=== PATIENT | female | born 2000 | race Caucasian/White ===

== ENCOUNTER 2021-01-26 22:00 | Emergency (ER) | payer MEDICAID ==
--- NOTE | 2021-01-26 22:22 | EDM.PDOC ---
ED HPI GENERAL MEDICAL PROBLEM - General Chief Complaint: ENT Problem Stated Complaint: SORE THROAT, CHILLS, 36 WEEKS PREGANT Time Seen by Provider: 01/26/21 22:21 Source of Information: Reports: Patient History Limitations: Reports: No Limitations - History of Present Illness INITIAL COMMENTS - FREE TEXT/NARRATIVE: Patient 20-year-old female who states she 36 weeks . Patient comes in today complaining of sore throat with her boyfriend was also being seen here. Patient states that she also traveled from [place] and wants to be checked for Covid as well. Patient has no cough shortness of breath fever chills abdominal pain vaginal bleeding or discharge. Throat Pain Score (Numeric/FACES): 3 - Related Data Allergies Allergy/AdvReac Type Severity Reaction Status Date / Time bee venom protein (honey bee) Allergy Anaphylactic Verified 12/15/20 23:55 Shock ibuprofen Allergy Hives Verified 12/15/20 23:55 nut - unspecified Allergy Wheezing Verified 12/15/20 23:55 hayfever Allergy Wheezing Uncoded 12/09/20 19:35 mushroom Allergy Anaphylactic Uncoded 12/09/20 19:35 Shock Home Meds: Home Meds Ondansetron [Zofran ODT] 4 mg PO Q6H PRN 12/09/20 [History] Pnv No.103/Folic/Om3s/Fish Oil [ Gummies] 1 each PO DAILY 12/09/20 [Hist ory] ED ROS ENT - Review of Systems Review Of Systems: See Below Constitutional: Reports: No Symptoms HEENT: Reports: Throat Pain Respiratory: Reports: No Symptoms Endocrine: Reports: No Symptoms GI/Abdominal: Reports: No Symptoms : Reports: No Symptoms Musculoskeletal: Reports: No Symptoms Skin: Reports: No Symptoms Neurological: Reports: No Symptoms Psychiatric: Reports: No Symptoms Hematologic/Lymphatic: Reports: No Symptoms Immunologic: Reports: No Symptoms ED EXAM, ENT - Physical Exam Exam: See Below Exam Limited By: No Limitations General Appearance: Alert, WD/WN, No Apparent Distress Mouth/Throat: Normal Inspection, Normal Gums Head: Atraumatic Respiratory/Chest: No Respiratory Distress, Lungs Clear, Normal Breath Sounds Cardiovascular: Normal Peripheral Pulses, Regular Rate, Rhythm GI/Abdominal: Normal Bowel Sounds, Soft, Non-Tender Extremities: Normal Inspection Neurological: Alert, Oriented, CN II-XII Intact, Normal Cognition, Normal Gait Course - Vital Signs Last Recorded V/S: Last Vital Signs Temp 96.8 F L 01/26/21 22:10 Pulse 84 01/26/21 22:10 Resp 14 01/26/21 22:10 BP 137/80 01/26/21 22:10 Pulse Ox 98 01/26/21 22:10 - Orders/Labs/Meds Labs: Laboratory Tests 01/26/21 01/26/21 01/26/21 Range/Units 22:25 22:25 23:00 Urine Color YELLOW Urine Appearance CLEAR Urine pH 7.0 (5.0-8.0) Ur Specific Labelle 1.010 (1.001-1.035) Urine Protein NEGATIVE (NEGATIVE) mg/dL Urine Glucose (UA) NEGATIVE (NEGATIVE) mg/dL Urine Ketones NEGATIVE (NEGATIVE) mg/dL Urine Occult Blood NEGATIVE (NEGATIVE) Urine Nitrite NEGATIVE (NEGATIVE) Urine Bilirubin NEGATIVE (NEGATIVE) Urine Urobilinogen 0.2 (<2.0) EU/dL Ur Leukocyte Esterase NEGATIVE (NEGATIVE) SARS-CoV-2 RNA (ANIRUDH) NEGATIVE (NEGATIVE) Group A Strep (PCR) NOT DETECTED (NOT DETECT) - Re-Assessments/Exams Free Text/Narrative Re-Assessment/Exam: 01/26/21 23:28 Patient strep and Covid are negative patient will be discharged given [facility] follow-up. Departure - Departure Time of Disposition: 23:28 Disposition: Home, Self-Care 01 Condition: Good Clinical Impression: Sore throat - Discharge Information *PRESCRIPTION DRUG MONITORING PROGRAM REVIEWED*: Not Applicable *COPY OF PRESCRIPTION DRUG MONITORING REPORT IN PATIENT LESA: Not Applicable Instructions: Sore Throat, [id number] Referrals: PCP,None [Primary Care Provider] - Forms: ED Department Discharge Additional Instructions: The following information is given to patients seen in the emergency department who are being discharged to home. This information is to outline your options for follow-up care. We provide all patients seen in our emergency department with a follow-up referral. The need for follow-up, as well as the timing and circumstances, are variable depending upon the specifics of your emergency department visit. If you don't have a primary care physician on staff, we will provide you with a referral. We always advise you to contact your personal physician following an emergency department visit to inform them of the circumstance of the visit and for follow-up with them and/or the need for any referrals to a consulting specialist. The emergency department will also refer you to a specialist when appropriate. This referral assures that you have the opportunity for follow-up care with a specialist. All of these measure are taken in an effort to provide you with optimal care, which includes your follow-up. Under all circumstances we always encourage you to contact your private physician who remains a resource for coordinating your care. When calling for follow-up care, please make the office aware that this follow-up is from your recent emergency room visit. If for any reason you are refused follow-up, please contact the [facility] Emergency Department at and asked to speak to the emergency department charge nurse. Please follow up with your primary care physician. If you do not have a primary care physician, see below: [facility] [address] [place] [id number] [facility] [address] [place] [address] You are seen today for sore throat and Covid concerns. Your strep is negative and your Covid is negative. Above is numbers for [facility] clinic that you can follow-up with. We also put you in a list today should call you hopefully for appointment if you have any concerns please return to the ED. Sepsis Event Note (ED) - Evaluation Sepsis Screening Result: No Definite Risk - Focused Exam Vital Signs: Vital Signs Temp Pulse Resp BP Pulse Ox 01/26/21 22:10 96.8 F L 84 14 137/80 98 - Assessment/Plan Plan: Patient 20-year-old female started 36wk presents today for throat pain. Will obtain strep Covid swab and will likely discharge home.
== END 2021-01-26 23:40 | disposition home or self-care (01) ==
LOC: MW.ED 22:00
DX: O99.513 Diseases of the respiratory system complicating pregnancy, third trimester (principal); J02.9 Acute pharyngitis, unspecified; Z20.822 Contact with and (suspected) exposure to COVID-19; Z91.048 Other nonmedicinal substance allergy status; Z91.018 Allergy to other foods; Z91.030 Bee allergy status; Z88.8 Allergy status to other drugs, medicaments and biological substances; Z3A.36 36 weeks gestation of pregnancy
CPT/HCPCS: 81003; 87651-QW; 99283; U0002

== ENCOUNTER 2021-06-16 17:22 | Emergency (ER) | payer MEDICAID | END 2021-06-16 19:03 | disposition left against medical advice (07) | LOC: MW.ED 17:22 | DX: Z53.21 Procedure and treatment not carried out due to patient leaving prior to being seen by health care provider (principal) ==

== ENCOUNTER 2021-10-06 19:44 | Emergency (ER) | payer MEDICAID ==
[2021-10-06] MEDS ORDERED: Ondansetron 4 MG Tab.DIS PO ONE (19:57)
== END 2021-10-06 20:50 ==
LOC: MW.ED 19:44
DX: R07.89 Other chest pain (principal); F41.0 Panic disorder [episodic paroxysmal anxiety]; Z91.030 Bee allergy status; Z88.0 Allergy status to penicillin; Z91.018 Allergy to other foods; Z88.8 Allergy status to other drugs, medicaments and biological substances
CPT/HCPCS: 71045; 93005; 99285; A9270

== ENCOUNTER 2022-02-20 17:03 | Emergency (ER) | payer MEDICAID ==
[2022-02-20] MEDS ORDERED: Diphtheria,Pertussis(Acell),Tetanus Vaccine 0.5 ML Syringe IM ONE (17:30)
== END 2022-02-20 18:10 | disposition home or self-care (01) ==
LOC: MW.ED 17:03
DX: S80.212A Abrasion, left knee, initial encounter (principal); F41.9 Anxiety disorder, unspecified; F32.A Depression, unspecified; X58.XXXA Exposure to other specified factors, initial encounter; Z23 Encounter for immunization
CPT/HCPCS: 90471; 90715; 99283-25

== ENCOUNTER 2022-02-24 21:20 | Emergency (ER) | payer MEDICAID ==
[2022-02-24] MEDS ORDERED: Lactated Ringers 1,000 ML IV ONE (21:56)
[2022-02-24] MEDS ORDERED: Ondansetron 4 MG/2 ML SDV IVPUSH ONE (21:56)
[2022-02-24] MEDS ORDERED: Sodium Chloride 0.9% 10 ML Syringe FLUSH PRN (21:56)
[2022-02-24] MEDS ORDERED: Sodium Chloride 0.9% 2.5 ML Syringe FLUSH PRN (21:56)
[2022-02-24 22:41] LABS: CARBON DIOXIDE,CO2 26.7 mmol/L (21.0-32.0)
[2022-02-24 22:53] LABS: CORONAVIRUS COVID-19 NAA NEGATIVE (NEGATIVE); INFLUENZA A NAA NEGATIVE (NEGATIVE); INFLUENZA B NAA NEGATIVE (NEGATIVE)
== END 2022-02-24 23:23 | disposition home or self-care (01) ==
LOC: MW.ED 21:20
DX: B34.9 Viral infection, unspecified (principal); Z91.030 Bee allergy status; Z88.0 Allergy status to penicillin; Z91.018 Allergy to other foods; Z20.822 Contact with and (suspected) exposure to COVID-19
CPT/HCPCS: 0240U; 36415; 71045; 80053; 85025; 96361; 96374; 99284; J2405; J3490; J7120

== ENCOUNTER 2022-03-08 19:31 | Emergency (ER) | payer MEDICAID ==
[2022-03-08] MEDS ORDERED: Ondansetron 4 MG Tab.DIS PO ONE (20:40)
[2022-03-08 21:06] LABS: CARBON DIOXIDE,CO2 28.7 mmol/L (21.0-32.0); POTASSIUM,K 4.2 mmol/L (3.5-5.1)
== END 2022-03-08 21:30 | disposition home or self-care (01) ==
LOC: MW.ED 19:31
DX: R11.0 Nausea (principal); Z91.030 Bee allergy status; Z91.013 Allergy to seafood; Z88.6 Allergy status to analgesic agent; Z88.0 Allergy status to penicillin; Z88.8 Allergy status to other drugs, medicaments and biological substances; Z91.018 Allergy to other foods
CPT/HCPCS: 36415; 80048; 81003; 81025; 84703; 85025; 99283; A9270

== ENCOUNTER 2022-03-30 22:57 | Emergency (ER) | payer MEDICAID ==
[2022-03-31] MEDS ORDERED: Ondansetron 4 MG/2 ML SDV IVPUSH ONE (01:10)
[2022-03-31] MEDS ORDERED: Morphine 4 MG/ML VIAL IVPUSH ONE (01:10)
[2022-03-31] MEDS ORDERED: Lactated Ringers 1,000 ML IV STA (01:11)
[2022-03-31 02:13] LABS: CARBON DIOXIDE,CO2 25.1 mmol/L (21.0-32.0); POTASSIUM,K 4.1 mmol/L (3.5-5.1)
== END 2022-03-31 02:49 | disposition home or self-care (01) ==
LOC: MW.ED 22:57
DX: R10.9 Unspecified abdominal pain (principal); Z91.030 Bee allergy status; Z91.013 Allergy to seafood; Z91.018 Allergy to other foods; Z88.0 Allergy status to penicillin; Z88.8 Allergy status to other drugs, medicaments and biological substances
CPT/HCPCS: 36415; 80053; 81001; 81025; 83605; 83690; 85025; 85610; 87040; 96361; 96374; 96375; 99284; J2270; J2405; J7120; 99283

== ENCOUNTER 2022-06-06 03:06 | Emergency (ER) | payer MEDICAID ==
[2022-06-06 04:09] LABS: CORONAVIRUS COVID-19 NAA NEGATIVE (NEGATIVE); INFLUENZA A NAA NEGATIVE (NEGATIVE); INFLUENZA B NAA NEGATIVE (NEGATIVE); RESPIRATORY SYNCYTIAL VIR NAA NEGATIVE (NEGATIVE)
== END 2022-06-06 04:21 | disposition home or self-care (01) ==
LOC: MW.ED 03:06
DX: J06.9 Acute upper respiratory infection, unspecified (principal); Z91.030 Bee allergy status; Z91.013 Allergy to seafood; Z88.6 Allergy status to analgesic agent; Z88.0 Allergy status to penicillin; Z91.018 Allergy to other foods
CPT/HCPCS: 0241U; 99284

== ENCOUNTER 2022-06-09 16:18 | Emergency (ER) | payer MEDICAID ==
[2022-06-09] MEDS ORDERED: Ondansetron 4 MG Tab.DIS PO ONE (17:06)
[2022-06-09 17:43] LABS: CORONAVIRUS COVID-19 NAA NEGATIVE (NEGATIVE); INFLUENZA A NAA NEGATIVE (NEGATIVE); INFLUENZA B NAA NEGATIVE (NEGATIVE)
== END 2022-06-09 18:44 | disposition home or self-care (01) ==
LOC: MW.ED 16:18
DX: R05.9 Cough, unspecified (principal); R09.89 Other specified symptoms and signs involving the circulatory and respiratory systems; B34.9 Viral infection, unspecified; Z20.822 Contact with and (suspected) exposure to COVID-19; Z88.0 Allergy status to penicillin; Z88.8 Allergy status to other drugs, medicaments and biological substances
CPT/HCPCS: 0240U; 71045; 99284; A9270; 93010; 99283

== ENCOUNTER 2022-06-15 03:44 | Emergency (ER) | payer MEDICAID ==
[2022-06-15] MEDS ORDERED: Albuterol/Ipratropium 3.0-0.5 MG/3 ML Neb Soln NEB ONE (04:17)
== END 2022-06-15 05:49 | disposition home or self-care (01) ==
LOC: MW.ED 03:44
DX: J02.9 Acute pharyngitis, unspecified (principal); R09.1 Pleurisy; H66.90 Otitis media, unspecified, unspecified ear; Z91.030 Bee allergy status; Z88.0 Allergy status to penicillin; Z91.018 Allergy to other foods; Z91.013 Allergy to seafood; Z88.8 Allergy status to other drugs, medicaments and biological substances
CPT/HCPCS: 71045; 71045-26; 81025; 87651-QW; 99285; J7620-GY

== ENCOUNTER 2022-07-29 22:01 | Emergency (ER) | payer MEDICAID ==
[2022-07-29] MEDS ORDERED: Ondansetron 4 MG Tab.DIS PO ONE (22:04)
[2022-07-29] MEDS ORDERED: Acetaminophen 500 MG Tab PO ONE (22:05)
[2022-07-29 23:05] LABS: CORONAVIRUS COVID-19 NAA NEGATIVE (NEGATIVE); INFLUENZA A NAA NEGATIVE (NEGATIVE); INFLUENZA B NAA NEGATIVE (NEGATIVE); RESPIRATORY SYNCYTIAL VIR NAA NEGATIVE (NEGATIVE)
== END 2022-07-30 00:13 | disposition home or self-care (01) ==
LOC: MW.ED 22:01
DX: J06.9 Acute upper respiratory infection, unspecified (principal); J45.909 Unspecified asthma, uncomplicated; Z91.030 Bee allergy status; Z91.013 Allergy to seafood; Z88.6 Allergy status to analgesic agent; Z91.018 Allergy to other foods; Z88.0 Allergy status to penicillin; Z88.8 Allergy status to other drugs, medicaments and biological substances; Z72.0 Tobacco use; Z20.822 Contact with and (suspected) exposure to COVID-19
CPT/HCPCS: 0241U; 99283; A9270